=== PATIENT | male | born 1990 | race Two or more races ===

== ENCOUNTER 2018-04-01 13:44 | Emergency (ER) | payer SELFPAY ==
[~2018-04-01] VITALS: Ht 180.3 cm; Wt 103.0 kg
[2018-04-01 13:46] VITALS: BP 139/82
[2018-04-01 14:36] LABS: BASOPHILS # (AUTO) 0.05 x10^3/uL (0-0.1); BASOPHILS % (AUTO) 1 % (0-1); EOSINOPHILS # (AUTO) 0.16 x10^3/uL (0-0.4); EOSINOPHILS % (AUTO) 2 % (1-7); LYMPHOCYTES # (AUTO) 2.87 x10^3/uL (1-3.4); LYMPHOCYTES % (AUTO) 32 % (22-44); MD NO; MEAN CORPUSCULAR HEMOGLOBIN 31.4 pg (27.5-34.5); MEAN CORPUSCULAR HGB CONC 34.9 g/dL (33.2-36.2); MEAN PLATELET VOLUME 7.8 fL (7.4-10.4); MONOCYTES # (AUTO) 0.45 x10^3/uL (0.2-0.8); MONOCYTES % (AUTO) 5 % (2-9); NEUTROPHILS # (AUTO) 5.39 x10^3/uL (1.8-6.8); NEUTROPHILS % (AUTO) 61 % (42-75); PLATELET COUNT 293 x10^3/uL (130-400); RED BLOOD COUNT 5.12 x10^6/uL (4.38-5.82); RED CELL DISTRIBUTION WIDTH 13.1 % (9.4-14.8)
[2018-04-01 14:45] LABS: ALANINE AMINOTRANSFERASE 48 U/L (12-78); ALBUMIN 3.9 g/dL (3.4-5.0); ANION GAP 8 mmol/L (5-15); CALCIUM 8.6 mg/dL (8.5-10.1); CHLORIDE 111 mmol/L (98-107)
[2018-04-01 14:55] LABS: ALKALINE PHOSPHATASE 149 U/L (45-117); BILIRUBIN,TOTAL 0.3 mg/dL (0.2-1.0); CREATININE 0.94 mg/dL (0.7-1.3); FREE T4 (FREE THYROXINE) 1.06 ng/dL (0.76-1.46); THYROID STIMULATING HORMONE 0.835 mIU/L (0.358-3.740); TOTAL PROTEIN 7.6 g/dL (6.4-8.2)
[2018-04-01 15:01] LABS: MICROSCOPIC NOT IND
[2018-04-01 15:03] LABS: CULTURE INDICATED? NO
== END 2018-04-01 15:32 | disposition left against medical advice (07) ==
LOC: ED 15:26
DX: R53.1 Weakness (principal); R53.83 Other fatigue; F17.210 Nicotine dependence, cigarettes, uncomplicated
CPT/HCPCS: 36415; 80053; 81003; 84439; 84443; 85025; 99284

== ENCOUNTER 2018-09-13 05:06 | Emergency (ER) | payer SELFPAY ==
[~2018-09-13] VITALS: Ht 180.3 cm; Wt 104.8 kg
--- NOTE | 2018-09-13 05:18 | NUR ---
PT PRESENTED WITH C/O SHARP EPIGASTRIC PAIN, N/V THAT STARTED AT 0100 TODAY, DENIES DIARREHA OR FEVER. MONITORS APPLIED, SIDERAILS UP X2, FAMILY AT BEDSIDE, CALL LIGHT WITHIN REACH. ERP AT BEDSIDE FOR EVAL
[2018-09-13] MEDS ORDERED: ONDANSETRON ODT 4 MG ONE (05:24)
[2018-09-13] MEDS ORDERED: MAALOX/HYOSCYAMINE/LIDOCAINE 45 ML BTL ONE (05:24)
--- NOTE | 2018-09-13 05:27 | NUR ---
PT MEDICATED PER MAR, AWAITING LAB RESULTS
[2018-09-13] MEDS ORDERED: MAALOX/HYOSCYAMINE/LIDOCAINE 45 ML BTL PO ONE (05:30)
[2018-09-13] MEDS ORDERED: ONDANSETRON ODT 4 MG PO ONE (05:30)
[2018-09-13 05:47] LABS: BASOPHILS # (AUTO) 0.05 x10^3/uL (0-0.1); BASOPHILS % (AUTO) 0 % (0-1); EOSINOPHILS # (AUTO) 0.06 x10^3/uL (0-0.4); EOSINOPHILS % (AUTO) 1 % (1-7); LYMPHOCYTES # (AUTO) 2.47 x10^3/uL (1-3.4); LYMPHOCYTES % (AUTO) 20 % (22-44); MD NO; MEAN CORPUSCULAR HEMOGLOBIN 31.2 pg (27.5-34.5); MEAN CORPUSCULAR HGB CONC 34.7 g/dL (33.2-36.2); MEAN CORPUSCULAR VOLUME 90.1 fL (81-97); MEAN PLATELET VOLUME 7.9 fL (7.4-10.4); MONOCYTES # (AUTO) 0.58 x10^3/uL (0.2-0.8); MONOCYTES % (AUTO) 5 % (2-9); NEUTROPHILS # (AUTO) 9.37 x10^3/uL (1.8-6.8); NEUTROPHILS % (AUTO) 75 % (42-75); PLATELET COUNT 286 x10^3/uL (130-400); RED BLOOD COUNT 5.02 x10^6/uL (4.38-5.82); RED CELL DISTRIBUTION WIDTH 13.1 % (9.4-14.8)
[2018-09-13 05:54] LABS: ALBUMIN 3.9 g/dL (3.4-5.0); ANION GAP 7 mmol/L (5-15); CALCIUM 9.2 mg/dL (8.5-10.1); CHLORIDE 109 mmol/L (98-107)
[2018-09-13 05:57] LABS: ALANINE AMINOTRANSFERASE 47 U/L (12-78); ALKALINE PHOSPHATASE 114 U/L (45-117); BILIRUBIN,TOTAL 0.2 mg/dL (0.2-1.0); CREATININE 1.06 mg/dL (0.7-1.3)
[2018-09-13] MEDS ORDERED: MORPHINE SULFATE 4 MG/ML, 1ML ONE ×2 (06:12→07:21)
[2018-09-13] MEDS ORDERED: FAMOTIDINE 20 MG/2 ML ONE (06:12)
[2018-09-13] MEDS: MORPHINE SULFATE 4 MG/ML, 1ML IVPush PRN ×2 (06:20→07:24)
--- NOTE | 2018-09-13 06:29 | NUR ---
PT TO CT
[2018-09-13] MEDS ORDERED: FAMOTIDINE 20 MG/2 ML IVP ONE (06:30)
[2018-09-13] MEDS ORDERED: OMNIPAQUE 350 MG/ML, 100ML BOTTLE ONE (06:40)
--- NOTE | 2018-09-13 06:55 | NUR ---
REPORT GIVEN TO CARLOS EDUARDO LIU
--- NOTE | 2018-09-13 07:03 | NUR ---
REC BS REPORT PT RESTING WAITING RESULTS
[2018-09-13 08:08] VITALS: BP 132/80
== END 2018-09-13 08:10 | disposition home or self-care (01) ==
LOC: ED 07:53
DX: K29.00 Acute gastritis without bleeding (principal); D72.829 Elevated white blood cell count, unspecified; F17.210 Nicotine dependence, cigarettes, uncomplicated
CPT/HCPCS: 36415; 74177; 80053; 83690; 85025; 96374; 96375; 96376; 99284; J3490; Q0162; Q9967